=== PATIENT | female | born 1980 | race Caucasian/White ===

== ENCOUNTER → 2024-07-30 10:18 | Outpatient (REF) | payer OTHER, SELFPAY ==
[2024-07-30 13:24] LABS: Rubella Positive
[2024-08-01 15:09] LABS: Rubeola (Measles) IgG Positive; Varicella Zoster IgG (VZV) Positive
[2024-08-01 19:03] LABS: Quantiferon Mitogen minus NIL 9.99 IU/mL; Quantiferon NIL 0.01 IU/mL; Quantiferon TB Gold Plus Negative (Negative)
== END ==
LOC: REG 10:18
PROVIDERS: ATTENDING PHYSICIAN Nurse Practitioner Family; FAMILY PHYSICIAN Nurse Practitioner Family
DX: Z23 Encounter for immunization (principal)
CPT/HCPCS: 36415; 86480; 86735; 86762; 86765; 86787

== ENCOUNTER → 2025-02-24 09:37 | Outpatient (REF) | payer BC, SELFPAY ==
[2025-03-01 03:28] LABS: HPV, High Risk Not Detected; HPV, High Risk Source Cervix
== END ==
LOC: CPAP 09:37
PROVIDERS: ATTENDING PHYSICIAN Obstetrics & Gynecology
DX: Z01.419 Encounter for gynecological examination (general) (routine) without abnormal findings (principal)
CPT/HCPCS: 87624